=== PATIENT | female | born 1985 | race Caucasian/White ===

== ENCOUNTER 2016-08-13 19:43 | Emergency (ER) | payer OTHER ==
[~2016-08-13] VITALS: Ht 162.5 cm; Wt 74.8 kg
[~2016-08-13 19:43] MED LIST: DAYPRO600 M1 PO; NKHM; TRIMOX500 MG PO
[2016-08-13] MEDS ORDERED: CEPHALEXIN500 M1 PO (20:20)
[2016-08-13] MEDS ORDERED: BACTRIM DS 8001 TA1 PO (20:20)
== END 2016-08-13 20:55 | disposition home or self-care (01) ==
LOC: ED 19:43
DX: L03.116 Cellulitis of left lower limb (principal); F17.200 Nicotine dependence, unspecified, uncomplicated; W57.XXXA Bitten or stung by nonvenomous insect and other nonvenomous arthropods, initial encounter; Y93.89 Activity, other specified; Y92.9 Unspecified place or not applicable; Y99.9 Unspecified external cause status